=== PATIENT | female | born 1995 | race Caucasian/White ===

== ENCOUNTER → 2018-03-23 | Outpatient (CLI) | payer OTHER ==
[~2018-03-23] MED LIST: IOPAMIDOL (ISOVUE-300) 100 ML BTL ONE
== END ==
LOC: FIMAGING 09:41
PROVIDERS: ATTEND Internal Medicine
DX: R10.9 Unspecified abdominal pain (principal); D72.829 Elevated white blood cell count, unspecified
CPT/HCPCS: Q9967

== ENCOUNTER → 2018-07-25 | Outpatient (CLI) | payer OTHER | LOC: FIMAGING 19:22 | PROVIDERS: ATTEND Internal Medicine | DX: M25.872 Other specified joint disorders, left ankle and foot (principal) ==